=== PATIENT | male | born 1935 | race Hispanic/Latino ===

== ENCOUNTER 2016-07-12 10:40 | Outpatient (CLI) | payer MEDICARE ==
--- NOTE | 2016-07-12 15:27 | Cat Scan Report ---
CT CHEST WITH CONTRAST History: Lung mass, hilar fullness. Technique: Helical CT following IV contrast. Sagittal and coronal reformatted images. Findings: Compared to the CTA chest dated 02/17/15. There are moderate emphysematous changes bilaterally. Linear scarring is noted in the lingula. No suspicious pulmonary mass is identified. No consolidation, pleural effusion or pneumothorax. Heart size is normal. The ascending aorta is dilated up to 5.5 cm. The descending thoracic aorta measures 2.9 cm at a similar level. No dissection is identified. There is no evidence for hilar mass or adenopathy. Pulmonary arterial structures are slightly prominent probably represents the hilar fullness on x-ray. The thoracic is intact. No suspicious bony lesion is appreciated. Limited images of the upper abdomen and straight a few calcified gallstones and scattered small renal cysts. Impression: Emphysema. Ascending aortic aneurysm measuring 5.5 cm. Cholelithiasis.
== END 2016-07-12 10:41 | disposition home or self-care (01) ==
LOC: CT 10:40
PROVIDERS: ATTEND Specialist
DX: Z01.811 Encounter for preprocedural respiratory examination (principal); Z01.818 Encounter for other preprocedural examination; K80.20 Calculus of gallbladder without cholecystitis without obstruction; N28.1 Cyst of kidney, acquired; J43.2 Centrilobular emphysema; R91.8 Other nonspecific abnormal finding of lung field; R93.8 Abnormal findings on diagnostic imaging of other specified body structures; J43.9 Emphysema, unspecified; I71.2 Thoracic aortic aneurysm, without rupture
CPT/HCPCS: 36415; 71260; 82565; 84520; Q9967